=== PATIENT | male | born 1960 | race Caucasian/White ===

== ENCOUNTER 2022-11-11 12:10 | Emergency (ER) | payer OTHER ==
[2022-11-11 12:16] VITALS: BP 190/125; PULSE 125; RESP 16; TEMP 98.2; BMI 31.3
[2022-11-11] MEDS ORDERED: ACETAMINOPHEN 1000 MG/100 ML BAG IVPB ONE (12:20)
[2022-11-11] MEDS ORDERED: METOCLOPRAMIDE HCL INJECTION 10 MG/2 ML VIAL IVPUSH ONE (12:20)
[2022-11-11] MEDS ORDERED: KETOROLAC TROMETHAMINE 30 MG/1 ML VIAL IVPUSH ONE (12:20)
[2022-11-11] MEDS ORDERED: METOCLOPRAMIDE HCL INJECTION 10 MG/2 ML VIAL ONE (12:29)
[2022-11-11] MEDS ORDERED: KETOROLAC TROMETHAMINE 30 MG/1 ML VIAL ONE (12:29)
[2022-11-11] MEDS ORDERED: ACETAMINOPHEN INJECTION 100 ML IVPB ONE (12:29)
== END 2022-11-11 14:29 | disposition home or self-care (01) ==
LOC: FER 12:10
PROC: 3E033GC Introduction of Other Therapeutic Substance into Peripheral Vein, Percutaneous Approach (ICD-10-PCS; principal; 2022-11-11)
DX: R51.9 Headache, unspecified (principal)
CPT/HCPCS: 70450-TC; 99284-25